=== PATIENT | female | born 1950 | race Caucasian/White ===

== ENCOUNTER 2018-02-11 18:13 | Emergency (ER) | payer MEDICARE ==
[2018-02-11] MEDS ORDERED: Bacitracin Oint 1 GM U/D Packet TOP ONE (18:26)
[2018-02-11] MEDS ORDERED: Lidocaine/EPINEPHrine/Tetracaine Soln 5 ML Each TOP ONE (18:26)
[2018-02-11] MEDS ORDERED: Diphtheria,Pertussis(Acell),Tetanus Vaccine 0.5 ML SDV IM ONE (18:26)
--- NOTE | 2018-02-11 18:33 | EDM.PDOC ---
ED HPI GENERAL MEDICAL PROBLEM - General Chief Complaint: Laceration Stated Complaint: FALL Time Seen by Provider: 02/11/18 18:27 Source of Information: Reports: Patient, RN History Limitations: Reports: No Limitations - History of Present Illness INITIAL COMMENTS - FREE TEXT/NARRATIVE: 67 yo female was taking a walking route through the [place] to avoid water sprinklers that were going in the yard. She tripped on a stump and hit her head with resulting brief LOC. Incurred a laceration above the L eye and has much swelling about that eye. Is unable to open her left eye. Denies current TURNER, does have facial pain. No nausea. BP normally is well controlled with her current meds and has not missed any doses. No other areas of pain currently. Onset: Today Onset Date: 02/11/18 Duration: Minutes: Location: Reports: Head, Face Quality: Reports: Ache Severity: Mild (got Fentanyl per EMS en route) Improves with: Reports: Medication Worsens with: Reports: Other (touching wounds) Context: Reports: Trauma Associated Symptoms: Reports: No Other Symptoms. 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) (Fentanyl per EMS) Left Eye Pain Score (Numeric/FACES): 5 - Related Data Allergies Allergy/AdvReac Type Severity Reaction Status Date / Time shellfish derived Allergy Cannot Verified 02/11/18 18:26 Remember Home Meds: Home Meds Aspirin [Adult Low Dose Aspirin EC] 81 mg PO ASDIRECTED 02/11/18 [History] Lisinopril/Hydrochlorothiazide [Lisinopril-Hctz 20-12.5 mg Tab] 1 each PO DAILY 02/11/18 [History] Metoprolol Succinate 25 mg PO DAILY 02/11/18 [History] SUMAtriptan Succinate [Imitrex] 100 mg PO DAILY 02/11/18 [History] Venlafaxine [Effexor XR] 75 mg PO DAILY 02/11/18 [History] atorvaSTATin [Lipitor] 80 mg PO BEDTIME 02/11/18 [History] ED ROS GENERAL - Review of Systems Review Of Systems: See Below Constitutional: Reports: No Symptoms HEENT: Reports: Other (Can't see out of L eye, unable to open, facial pain) Respiratory: Reports: No Symptoms Cardiovascular: Reports: No Symptoms GI/Abdominal: Reports: No Symptoms : Reports: No Symptoms Musculoskeletal: Reports: No Symptoms Skin: Reports: Wound (laceration above the L eye) Neurological: Reports: No Symptoms Psychiatric: Reports: No Symptoms ED EXAM, SKIN/RASH Exam: See Below Exam Limited By: No Limitations General Appearance: Alert, WD/WN, No Apparent Distress Eye Exam: Left Eye: Other (eye swollen shut, unable to open), Bilateral Eye: Vision Changes (L conjunctiva very edematous, able to see with lids pried open. ) Ears: Normal External Exam, Normal Canal, Hearing Grossly Normal, Normal TMs Nose: Normal Inspection, Normal Mucosa, No Blood Throat/Mouth: Normal Inspection, Normal Lips, Normal Oropharynx, Normal Voice, No Airway Compromise Head: Atraumatic, Normocephalic Neck: Normal Inspection, Supple, Non-Tender Respiratory/Chest: No Respiratory Distress, Lungs Clear, Normal Breath Sounds, No Accessory Muscle Use Cardiovascular: Regular Rate, Rhythm GI/Abdominal: Normal Bowel Sounds, Soft, Non-Tender, No Distention Back Exam: Normal Inspection. No: CVA Tenderness (R), CVA Tenderness (L) Extremities: Normal Inspection, Normal Range of Motion, Non-Tender, No Pedal Edema Neurological: Alert, Oriented, CN II-XII Intact, Normal Cognition, No Motor/ Sensory Deficits Psychiatric: Normal Affect, Normal Mood Skin: Warm, Dry, Normal Color, No Rash, Wound/Incision (laceration above the L eye. ) Location, Skin: Face Characteristics: Linear Associated features: Tenderness, Swelling. No: Warmth ED SKIN PROCEDURES - Laceration/Wound Repair Left Upper Face Lac/Wound length In cm: 2.5 Appearance: Linear, Clean Distal NVT: Neuro & Vascular Intact Anesthetic Type: Local Local Anesthesia - Lidocaine (Xylocaine): 1% Plain Local Anesthetic Volume: 2cc Skin Prep: Saline Exploration/Debridement/Repair: Wound Explored Closed with: Sutures Suture Size: other (6-0) Suture Type: Nylon, Interrupted, Simple # of Sutures: 5 Drain Placement: No Sterile Dressing Applied: Nurse Tetanus Status Addressed: Yes Complications: No Course - Vital Signs Last Recorded V/S: Last Vital Signs Temp 35.9 C 02/11/18 18:43 Pulse 79 02/11/18 18:43 Resp 16 02/11/18 18:43 BP 171/96 H 02/11/18 18:43 Pulse Ox 97 02/11/18 18:43 - Orders/Labs/Meds Orders: Active Orders 24 hr Category Date Time Status Vaccines to be Administered [RC] PER UNIT ROUTINE Care 02/11/18 18:26 Active Head wo Cont [CT] Stat Exams 02/11/18 18:26 Taken Max Facial Sinus wo Cont [CT] Stat Exams 02/11/18 19:51 Taken Labs: Laboratory Tests 02/11/18 Range/Units 18:30 Ethyl Alcohol < 3 mg/dL Meds: Medications Discontinued Medications Generic Name Dose Route Start Last Admin Trade Name Ritchie PRN Reason Stop Dose Admin Bacitracin 1 dose 02/11/18 18:26 02/11/18 18:43 Bacitracin Oint 1 Gm TOP 02/11/18 18:27 1 dose ONETIME ONE Administration Diphtheria/Tetanus/Acell Pertussis 0.5 ml 02/11/18 18:26 02/11/18 18:39 Adacel IM 02/11/18 18:27 0.5 ml .ONCE ONE Administration Lidocaine HCl 5 ml 02/11/18 19:36 02/11/18 20:10 Xylocaine-Mpf 1% INJECT 02/11/18 19:37 5 ml ONETIME ONE Administration Lidocaine/Tetracaine 5 ml 02/11/18 18:26 02/11/18 18:38 Let Soln TOP 02/11/18 18:27 5 ml ONETIME ONE Administration - Radiology Interpretation Free Text/Narrative:: CT head-no acute osseous injury, no intracranial pathology Facial bones CT-negative CT Results Date: 02/11/18 CT Results Time: 19:10 Departure - Departure Time of Disposition: 20:29 Disposition: Home, Self-Care 01 Condition: Fair Clinical Impression: Concussion Qualifiers: Encounter type: initial encounter Loss of consciousness presence/duration: with LOC of 30 min or less Qualified Code(s): S06.0X1A - Concussion with loss of consciousness of 30 minutes or less, initial encounter Laceration of eyebrow Qualifiers: Encounter type: initial encounter Laterality: left Qualified Code(s): S01.112A - Laceration without foreign body of left eyelid and periocular area, initial encounter Facial contusion Qualifiers: Encounter type: initial encounter Qualified Code(s): S00.83XA - Contusion of other part of head, initial encounter Black eye of left side Qualifiers: Encounter type: initial encounter Qualified Code(s): S00.12XA - Contusion of left eyelid and periocular area, initial encounter - Discharge Information *PRESCRIPTION DRUG MONITORING PROGRAM REVIEWED*: No *COPY OF PRESCRIPTION DRUG MONITORING REPORT IN PATIENT JEREMIAH: No Referrals: PCP,None [Primary Care Provider] - Forms: ED Department Discharge Additional Instructions: Clean wound twice daily with 1/2 water and 1/2 peroxide. Dry. Apply antibiotic ointment. Take [place] as needed for pain relief. Stitches out in the clinic in 7 days. Recheck of your head injury before the weekend in the clinic, call for an appt. - My Orders Last 24 Hours: My Active Orders 02/11/18 18:26 Vaccines to be Administered [RC] PER UNIT ROUTINE Head wo Cont [CT] Stat 02/11/18 19:51 Max Facial Sinus wo Cont [CT] Stat - Assessment/Plan Last 24 Hours: My Active Orders 02/11/18 18:26 Vaccines to be Administered [RC] PER UNIT ROUTINE Head wo Cont [CT] Stat 02/11/18 19:51 Max Facial Sinus wo Cont [CT] Stat
== END 2018-02-11 21:12 | disposition home or self-care (01) ==
LOC: JP.ED 18:13
DX: S06.0X1A Concussion with loss of consciousness of 30 minutes or less, initial encounter (principal); S01.112A Laceration without foreign body of left eyelid and periocular area, initial encounter; Z23 Encounter for immunization; Z91.013 Allergy to seafood; Z79.899 Other long term (current) drug therapy; W01.198A Fall on same level from slipping, tripping and stumbling with subsequent striking against other object, initial encounter
CPT/HCPCS: 12011; 36415; 70450; 70486; 90471; 90715; 99284; A9270; G0480

== ENCOUNTER 2018-02-16 13:34 | Emergency (ER) | payer MEDICARE ==
--- NOTE | 2018-02-16 14:36 | EDM.PDOC ---
ED HPI GENERAL MEDICAL PROBLEM - General Chief Complaint: Skin Complaint Stated Complaint: LEFT EYE RECHECK Time Seen by Provider: 02/16/18 14:00 Source of Information: Reports: Patient History Limitations: Reports: No Limitations - History of Present Illness INITIAL COMMENTS - FREE TEXT/NARRATIVE: 67-year-old female fell and had trauma to her left eye 1 week ago, sustained a laceration on the left eyebrow and periorbital ecchymosis. She was scheduled to have her sutures removed tomorrow, but her swelling has decreased to the point where she cannot get her eye open and she noticed some small black spots and intermittent flashing lights of the left eye. She called the clinic and asked if she could get her sutures out and have someone look at her eye, they sent her to the emergency room. She is not having significant pain. Associated Symptoms: Denies: Malaise, Nausea/Vomiting, Shortness of Breath - Related Data Allergies Allergy/AdvReac Type Severity Reaction Status Date / Time shellfish derived Allergy Cannot Verified 02/11/18 18:26 Remember Home Meds: Home Meds Aspirin [Adult Low Dose Aspirin EC] 81 mg PO ASDIRECTED 02/11/18 [History] Lisinopril/Hydrochlorothiazide [Lisinopril-Hctz 20-12.5 mg Tab] 1 each PO DAILY 02/11/18 [History] Metoprolol Succinate 25 mg PO DAILY 02/11/18 [History] SUMAtriptan Succinate [Imitrex] 100 mg PO DAILY 02/11/18 [History] Venlafaxine [Effexor XR] 75 mg PO DAILY 02/11/18 [History] atorvaSTATin [Lipitor] 80 mg PO BEDTIME 02/11/18 [History] Past Medical History Cardiovascular History: Reports: High Cholesterol, Hypertension, DC Musculoskeletal History: Reports: Fibromyalgia Neurological History: Reports: Migraines Endocrine/Metabolic History: Reports: Obesity/BMI 30+ - Past Surgical History HEENT Surgical History: Reports: Tonsillectomy Social & Family History - Tobacco Use Smoking Status *Q: Never Smoker - Caffeine Use Caffeine Use: Reports: None ED ROS GENERAL - Review of Systems Review Of Systems: See Below Constitutional: Denies: Fever HEENT: Reports: Vision Change (As described in history of present illness) Respiratory: Denies: Shortness of Breath GI/Abdominal: Denies: Nausea, Vomiting ED EXAM, SKIN/RASH Exam: See Below Exam Limited By: No Limitations General Appearance: Alert, No Apparent Distress Eye Exam: Bilateral Eye: Other (Patient has fairly significant periorbital ecchymosis around the left eye. The laceration has healed nicely, sutures were removed.) Respiratory/Chest: No Respiratory Distress Skin: Other (Significant bruising around the left eye) Comments: Sutures were removed, vision was tested and was 20/20. I called the [facility], the patient's primary [facility] consultant and they agreed to see her tomorrow afternoon at 1:00. Course - Vital Signs Last Recorded V/S: Last Vital Signs Temp 97.2 F 02/16/18 14:07 Pulse 64 02/16/18 14:07 Resp 15 02/16/18 14:07 BP 158/87 H 02/16/18 14:07 Pulse Ox 93 L 02/16/18 14:07 Departure - Departure Time of Disposition: 14:59 Disposition: Home, Self-Care 01 Condition: Good Clinical Impression: Visit for suture removal, Change in vision - Discharge Information Instructions: Suture Removal, Care After Referrals: Korey Bourgeois PA [Primary Care Provider] - Forms: ED Department Discharge Care Plan Goals: Your eye doctor is expecting to see you at 1:00 in the afternoon tomorrow.
== END 2018-02-16 14:59 | disposition home or self-care (01) ==
LOC: JP.ED 13:34
DX: H53.9 Unspecified visual disturbance (principal); I10 Essential (primary) hypertension; E78.00 Pure hypercholesterolemia, unspecified; Z79.899 Other long term (current) drug therapy; Z79.82 Long term (current) use of aspirin; Z91.013 Allergy to seafood
CPT/HCPCS: 99282

== ENCOUNTER 2019-03-22 06:23 | Day surgery (SDC) | payer MEDICARE ==
[2019-03-22] MEDS ORDERED: Lactated Ringers 1,000 ML IV SCH (07:00)
[2019-03-22] MEDS ORDERED: Propofol 200 MG/20 ML SDV ONE ×2 (07:14→08:26)
[2019-03-22] MEDS ORDERED: Midazolam 1 MG/ML 2 ML SDV ONE (07:14)
[2019-03-22] MEDS ORDERED: fentaNYL 100 MCG/2 ML SDV ONE (07:14)
[2019-03-22] MEDS ORDERED: Sodium Phosphate,Monobasic/Sodium Phosphate,Dibasic Enema 133 ML Bottle RECTAL ONE (07:25)
--- NOTE | 2019-03-22 11:21 | OR ---
DATE OF PROCEDURE: 03/22/2019 SURGEON: Marvin Luo MD PREOPERATIVE DIAGNOSIS: Bloody diarrhea. POSTOPERATIVE DIAGNOSIS: Bloody diarrhea, pandiverticulosis, small cecal polyp, medium- sized polyps at 20 and 25 cm from the anal verge. PROCEDURE PERFORMED: Colonoscopy to the cecum with biopsy resection of small cecal polyp, random colonic biopsies, snare cautery polypectomy of polyps at 20 and 25 cm from the anal verge. ANESTHESIA: IV anesthesia with monitored anesthesia care. INDICATION: This 68-year-old white female is referred for a colonoscopy. She says she has had 3 months of bloody diarrhea. She has never had a colonoscopic exam. I counseled her for the procedure, including risks and alternatives, and she gave her informed consent to proceed. DESCRIPTION OF PROCEDURE: The patient was placed in the left lateral decubitus position. IV anesthesia was administered by the Anesthesia Service. A time-out was held. A rectal exam was performed, which was unremarkable. The flexible video Olympus colonoscope was introduced through her anus, up her rectum, out her colon all the way to the cecum. En route, we saw multiple both right and left-sided diverticula. There was no bleeding or inflammation associated with any of them. Indeed, we saw no old or new blood anywhere in the gastrointestinal tract. In the cecum, we saw a small polyp, which was removed with a single bite of the biopsy forceps. The scope was then slowly withdrawn, examining the mucosa throughout. We did obtain random colonic biopsies throughout the entire colon. No other lesions, other than diverticula, were noted until we reached 25 cm from the anal verge. Here and at 20 cm from the anal verge, we saw somewhat larger polyps. These were both removed with the snare. This involved placing the snare about their base, elevating up away from the bowel wall, and amputating as electrocautery was applied. They were separately aspirated through the scope and captured in a polyp trap. They were sent separately to the laboratory. The one at 20 cm had some bleeding with it, which was then controlled with electrocautery. The scope was withdrawn further with no other lesions noted. The scope was retroflexed in the rectum with the distal rectum appearing unremarkable. The scope was straightened and removed. She tolerated the procedure well. Marvin Luo MD /[id number]
== END 2019-03-22 10:18 | disposition home or self-care (01) ==
LOC: JP.SDS 06:23
PROVIDERS: ATTEND Surgery
DX: K57.31 Diverticulosis of large intestine without perforation or abscess with bleeding (principal); D12.0 Benign neoplasm of cecum; K51.40 Inflammatory polyps of colon without complications; K52.9 Noninfective gastroenteritis and colitis, unspecified; I10 Essential (primary) hypertension; E78.00 Pure hypercholesterolemia, unspecified; Z88.8 Allergy status to other drugs, medicaments and biological substances; Z91.013 Allergy to seafood; Z91.030 Bee allergy status
CPT/HCPCS: 45380; 45385; A9270; J2250; J2704; J3010; J7120

== ENCOUNTER 2021-03-28 16:04 | Emergency (ER) | payer MEDICARE | END 2021-03-28 17:15 | disposition left against medical advice (07) | LOC: JP.ED 16:04 | DX: Z53.21 Procedure and treatment not carried out due to patient leaving prior to being seen by health care provider (principal) ==

== ENCOUNTER 2023-03-02 14:52 | Emergency (ER) | payer MEDICARE | END 2023-03-02 15:51 | disposition left against medical advice (07) | LOC: JP.ED 14:52 | DX: Z53.21 Procedure and treatment not carried out due to patient leaving prior to being seen by health care provider (principal) ==

== ENCOUNTER 2025-03-02 11:01 | Emergency (ER) | payer MEDICARE ==
[2025-03-02] MEDS: fentaNYL 50 MCG/ML SDV IM ONE (13:17)
[2025-03-02 13:36] LABS: BASOPHILS ABSOLUTE AUTO 0.03 K/uL (0.00-0.10); BASOPHILS PERCENT AUTO 0.3 % (0.1-1.3); EOSINOPHILS ABSOLUTE AUTO 0.27 K/uL (0.00-0.40); EOSINOPHILS PERCENT AUTO 3.0 % (0.0-5.4); IMMATURE GRAN ABSOLUTE AUTO 0.07 K/uL (0.00-0.23); IMMATURE GRAN PERCENT AUTO 0.8 % (0.0-0.7); LYMPHOCYTES ABSOLUTE AUTO 1.14 K/uL (0.8-3.3); LYMPHOCYTES PERCENT AUTO 12.6 % (11.4-47.7); MONOCYTES ABSOLUTE AUTO 0.74 K/uL (0.20-0.90); MONOCYTES PERCENT AUTO 8.2 % (3.3-12.6); NEUTROPHILS ABSOLUTE AUTO 6.80 K/uL (1.0-7.6); NEUTROPHILS PERCENT AUTO 75.1 % (40.0-78.1); PLATELET COUNT,PLT 511 K/uL (130-375); RED BLOOD CELL COUNT 4.39 M/uL (3.77-5.24); WHITE BLOOD CELL COUNT,WBC 9.1 K/uL (3.2-11.0)
[2025-03-02 14:12] LABS: A/G RATIO 0.8 (1.2-2.2); ALANINE AMINOTRANSFERASE,ALT 16 U/L (12-78); ASPARTATE AMNIOTRANSFERASE,AST 17 U/L (15-37); BILIRUBIN TOTAL 0.3 mg/dL (0.2-1.0); BLOOD UREA NITROGEN,BUN 12 mg/dL (7-18); CARBON DIOXIDE,CO2 29 mmol/L (21-32); CHLORIDE,CL 99 mmol/L (100-108); CREATININE 0.8 mg/dL (0.6-1.0); EST CRCL DRUG DOSING (CG) 44.99 mL/min; ESTIMATED GFR 78 mL/min (>60); GLUCOSE RANDOM 98 mg/dL (74-106); POTASSIUM,K 4.0 mmol/L (3.6-5.2); PROTEIN TOTAL,TP 7.4 g/dL (6.4-8.2); SODIUM,NA 137 mmol/L (140-148)
== END 2025-03-02 15:31 | disposition home or self-care (01) ==
LOC: JP.ED 11:01
DX: M54.50 Low back pain, unspecified (principal); I10 Essential (primary) hypertension; E78.00 Pure hypercholesterolemia, unspecified; E66.9 Obesity, unspecified; Z68.35 Body mass index [BMI] 35.0-35.9, adult; Z88.8 Allergy status to other drugs, medicaments and biological substances; Z91.013 Allergy to seafood; Z91.030 Bee allergy status; Z79.899 Other long term (current) drug therapy
CPT/HCPCS: 36415; 72110; 80053; 85025; 86140; 96372; 99283; J3010

== ENCOUNTER 2025-03-08 11:41 | Emergency (ER) | payer MEDICARE ==
[2025-03-08] MEDS ORDERED: Naloxone 0.4 MG/ML SDV IVPUSH PRN (15:37)
[2025-03-08] MEDS: fentaNYL 50 MCG/ML SDV IM ONE (15:50)
[2025-03-08 16:03] LABS: BASOPHILS ABSOLUTE AUTO 0.06 K/uL (0.00-0.10); BASOPHILS PERCENT AUTO 0.6 % (0.1-1.3); EOSINOPHILS ABSOLUTE AUTO 0.16 K/uL (0.00-0.40); EOSINOPHILS PERCENT AUTO 1.6 % (0.0-5.4); IMMATURE GRAN ABSOLUTE AUTO 0.08 K/uL (0.00-0.23); IMMATURE GRAN PERCENT AUTO 0.8 % (0.0-0.7); LYMPHOCYTES ABSOLUTE AUTO 1.97 K/uL (0.8-3.3); LYMPHOCYTES PERCENT AUTO 19.7 % (11.4-47.7); MONOCYTES ABSOLUTE AUTO 1.00 K/uL (0.20-0.90); MONOCYTES PERCENT AUTO 10.0 % (3.3-12.6); NEUTROPHILS ABSOLUTE AUTO 6.72 K/uL (1.0-7.6); NEUTROPHILS PERCENT AUTO 67.3 % (40.0-78.1); PLATELET COUNT,PLT 556 K/uL (130-375); RED BLOOD CELL COUNT 4.75 M/uL (3.77-5.24); WHITE BLOOD CELL COUNT,WBC 10.0 K/uL (3.2-11.0)
[2025-03-08 16:22] LABS: BLOOD UREA NITROGEN,BUN 14 mg/dL (7-18); CARBON DIOXIDE,CO2 28 mmol/L (21-32); CHLORIDE,CL 98 mmol/L (100-108); CREATININE 0.8 mg/dL (0.6-1.0); ESTIMATED GFR 78 mL/min (>60); GLUCOSE RANDOM 143 mg/dL (74-106); POTASSIUM,K 3.7 mmol/L (3.6-5.2); SODIUM,NA 134 mmol/L (140-148)
[2025-03-08] MEDS ORDERED: Bacitracin Oint 1 GM U/D Packet TOP ONE (17:18)
== END 2025-03-08 17:55 | disposition home or self-care (01) ==
LOC: JP.ED 11:41
DX: G89.18 Other acute postprocedural pain (principal); T81.31XD Disruption of external operation (surgical) wound, not elsewhere classified, subsequent encounter; I10 Essential (primary) hypertension; E66.9 Obesity, unspecified; Z86.16 Personal history of COVID-19; Z91.013 Allergy to seafood; Z91.030 Bee allergy status; Z79.899 Other long term (current) drug therapy
CPT/HCPCS: 36415; 80048; 85025; 86140; 93971; 96372; 99284; A9270; J3010; 99283

== ENCOUNTER 2025-03-14 13:27 | Emergency (ER) | payer MEDICARE | END 2025-03-14 16:30 | disposition left against medical advice (07) | LOC: JP.ED 13:27 | DX: Z53.21 Procedure and treatment not carried out due to patient leaving prior to being seen by health care provider (principal) ==

== ENCOUNTER 2025-03-15 15:13 | Emergency (ER) | payer MEDICARE ==
[2025-03-15] MEDS: Iopamidol 612 MG/ML 100 ML Bottle IV PRN (16:30)
[2025-03-15] MEDS: Sodium Chloride 0.9% 10 ML Syringe FLUSH ONE (16:30)
== END 2025-03-15 17:33 | disposition home or self-care (01) ==
LOC: JP.ED 15:13
DX: K59.03 Drug induced constipation (principal); I10 Essential (primary) hypertension; E78.00 Pure hypercholesterolemia, unspecified; E66.9 Obesity, unspecified; T40.2X5A Adverse effect of other opioids, initial encounter; Z86.16 Personal history of COVID-19; Z90.09 Acquired absence of other part of head and neck; Z91.030 Bee allergy status; Z88.8 Allergy status to other drugs, medicaments and biological substances; Z91.013 Allergy to seafood; Z79.899 Other long term (current) drug therapy
CPT/HCPCS: 74177; 99284; A9270; Q9967